=== PATIENT | female | born 1985 | race Caucasian/White ===

== ENCOUNTER 2021-07-12 17:17 | Emergency (ER) | payer MEDICAID ==
[~2021-07-12] VITALS: Ht 167.6 cm; Wt 113.9 kg
[2021-07-12 17:20] VITALS: BP 147/80
--- NOTE | 2021-07-12 17:33 | NUR ---
PT AMBULATED TO ER BED 8 WITH A STEADY GAIT.
--- NOTE | 2021-07-12 17:35 | NUR ---
36 Y/O FEMALE C/O CHEST PRESSURE AND A "LUMP IN HER THROAT" LAST NIGHT, STATING SHE FELT CHEST PAIN UPON INSPIRATION. REPORTS TODAY FEELING PALPITATIONS, DENIES CP, SOB, DIZZINESS UPON ARRIVAL. PT IS ABLE TO SPEAK IN FULL SENTENCES. LUNGS CTA. VSS. BP 144/73, P63,O2SAT 100% ROOM AIR, R 21. PT IS ALERT AND ORIENTED X4. CONNECTED TO MONITOR. BED LOCKED IN LOWEST POSITION. BED RAIL X1. PMH: DENIES NKA
--- NOTE | 2021-07-12 18:23 | NUR ---
[facility] NET AT PT BEDSIDE.
--- NOTE | 2021-07-12 18:24 | NUR ---
LAB AT PT BEDSIDE
[2021-07-12 18:39] LABS: BASOPHILS # (AUTO) 0.1 K/uL (0.00-0.22); BASOPHILS % (AUTO) 0.8 % (0.0-2.0); EOSINOPHILS # (AUTO) 0.2 K/uL (0-0.4); EOSINOPHILS % (AUTO) 2.7 % (0.0-4.0); HEMOGLOBIN 13.1 g/dL (12.0-16.0); LYMPHOCYTES # (AUTO) 2.4 K/uL (2.5-16.5); LYMPHOCYTES % (AUTO) 27.5 % (20.5-51.1); MEAN CORPUSCULAR HEMOGLOBIN 29 pg (27-31); MEAN CORPUSCULAR HGB CONC 34 g/dL (33-37); MONOCYTES # (AUTO) 0.6 K/uL (0.8-1.0); MONOCYTES % (AUTO) 6.9 % (1.7-9.3); NEUTROPHILS # (AUTO) 5.3 K/uL (1.8-7.7); NEUTROPHILS % (AUTO) 62.1 % (42.2-75.2); PLATELET COUNT (AUTO) 244 K/uL (140-450); RED BLOOD CELL COUNT(AUTO) 4.48 MIL/uL (4.20-5.40); RED CELL DISTRIBUTION WIDTH 13.5 % (11.6-13.7); WHITE BLOOD COUNT (AUTO) 8.6 K/uL (4.8-10.8)
--- NOTE | 2021-07-12 19:18 | NUR ---
report received from Eva SUTHERLAND.
--- NOTE | 2021-07-12 19:18 | NUR ---
Pt report given to MARYBETH TINEO. Transfer of care at this time.
[2021-07-12 19:22] LABS: ALBUMIN 3.7 g/dL (3.4-5.0); ANION GAP 12.5 (8-16); ASPARTATE AMINOTRANSFERASE 14 U/L (15-37); CARBON DIOXIDE 25.2 mmol/L (21-32); CHLORIDE 105 mmol/L (98-107); CREATININE 0.6 mg/dL (0.6-1.3); GFR ARICAN-AMERICAN 145 mL/min (>90); GLUCOSE 100 mg/dL (74-106); POTASSIUM 3.7 mmol/L (3.5-5.1); SODIUM SERUM 139 mmol/L (136-145); THYROID STIMULATING HORMONE 2.15 uIU/mL (0.34-3.74); TOTAL BILIRUBIN 0.5 mg/dL (0.0-1.0); UREA NITROGEN, BLOOD 12 mg/dL (7-18)
[2021-07-12] MEDS ORDERED: DICYCLOMINE HCL LIQUID 20 MG, ALUMINUM HYD/MAG/SIMETHICONE 30 ML, LIDOCAINE VISCOUS 2% ... PO ONE ×3 (19:30)
[2021-07-12] MEDS ORDERED: ALUM355S59 PO (19:40)
[2021-07-12] MEDS ORDERED: ALUMINUM HYD/MAG/SIMETHICONE 30 ML UDC ONE (19:49)
[2021-07-12] MEDS ORDERED: DICYCLOMINE HCL LIQUID 10 MG/5 ML UDC ONE (19:50)
--- NOTE | 2021-07-12 19:50 | NUR ---
PATIENT VSS, SITTING IN BED. NO C/O PALPITATIONS OR PAIN/DISCOMFORT AT THIS TIME. SIDE RAIL UP FOR SAFETY, BED LOW AND LOCKED. ALL NEEDS MET.
[2021-07-12 20:11] VITALS: BP 133/57
--- NOTE | 2021-07-12 20:11 | NUR ---
Patient discharged with v/s stable. Written and verbal after care instructions given on Dysphagia, palpitations and explained. Patient alert, oriented and verbalized understanding of instructions. Ambulatory with steady gait. All questions addressed prior to discharge. ID band removed. Patient advised to follow up with PMD. Rx of Mag Hydrox/ Al Hydrox/ Simeth given.
== END 2021-07-12 20:11 | disposition home or self-care (01) ==
LOC: MED 17:17
DX: R13.10 Dysphagia, unspecified (principal); R00.2 Palpitations; Z79.899 Other long term (current) drug therapy
CPT/HCPCS: 36415; 71045; 80053; 84443; 84484; 85025; 93005; 99285; Q0092

== ENCOUNTER 2023-04-28 01:16 | Emergency (ER) | payer MEDICAID, OTHER ==
[~2023-04-28] VITALS: Ht 165.1 cm; Wt 106.1 kg
[~2023-04-28 01:16] MED LIST: ALUM355S59 PO
[2023-04-28 01:51] VITALS: BP 146/85; PULSE 78; RESP 16; TEMP 97.1; O2SAT 97
[2023-04-28 02:32] LABS: BASOPHILS # (AUTO) 0.1 K/uL (0.00-0.22); BASOPHILS % (AUTO) 0.9 % (0.0-2.0); EOSINOPHILS # (AUTO) 0.1 K/uL (0-0.4); EOSINOPHILS % (AUTO) 2.1 % (0.0-4.0); HEMATOCRIT 38.6 % (36-48); HEMOGLOBIN 13.2 g/dL (12.0-16.0); LYMPHOCYTES # (AUTO) 1.7 K/uL (2.5-16.5); LYMPHOCYTES % (AUTO) 25.3 % (20.5-51.1); MEAN CORPUSCULAR HEMOGLOBIN 30 pg (27-31); MEAN CORPUSCULAR HGB CONC 34 g/dL (33-37); MEAN CORPUSCULAR VOLUME 88.1 fL (80-94); MONOCYTES # (AUTO) 0.5 K/uL (0.8-1.0); MONOCYTES % (AUTO) 7.5 % (1.7-9.3); NEUTROPHILS # (AUTO) 4.3 K/uL (1.8-7.7); NEUTROPHILS % (AUTO) 64.2 % (42.2-75.2); PLATELET COUNT (AUTO) 252 K/uL (140-450); RED BLOOD CELL COUNT(AUTO) 4.38 MIL/uL (4.20-5.40); RED CELL DISTRIBUTION WIDTH 13.5 % (11.6-13.7); WHITE BLOOD COUNT (AUTO) 6.6 K/uL (4.8-10.8)
[2023-04-28 02:48] LABS: INR 0.93 (0.8-1.2); PARTIAL THROMBOPLASTIN TIME 23.5 secs (22-35.6); PROTHROMBIN TIME 9.8 secs (10.8-13.4)
[2023-04-28 02:49] LABS: ALBUMIN 3.1 g/dL (3.4-5.0); ANION GAP 13.7 (8-16); CALCIUM 8.6 mg/dL (8.5-10.1); CARBON DIOXIDE 25.3 mmol/L (21-32); CREATININE 0.7 mg/dL (0.6-1.3); TOTAL BILIRUBIN 0.5 mg/dL (0.0-1.0); TOTAL PROTEIN, SERUM 7.8 g/dL (6.4-8.2)
[2023-04-28] MEDS: MORPHINE SULFATE 4 MG/ML SYR IVP ONE (03:41)
[2023-04-28] MEDS: ONDANSETRON 4 MG/2 ML VIAL IVP ONE (03:41)
[2023-04-28 05:02] LABS: APPEARANCE,URINE CLEAR (CLEAR); BILIRUBIN,URINE NEGATIVE (NEGATIVE); BLOOD, URINE TRACE-I (NEGATIVE); COLOR,URINE YELLOW (YELLOW); LEUKOCYTE ESTERASE ,URINE NEGATIVE (NEGATIVE); NITRITE, URINE NEGATIVE (NEGATIVE); PROTEIN,URINE NEGATIVE (NEGATIVE); UGLUCOSE 2+ (NEGATIVE); UROBILINOGEN,URINE 0.2 EU/dL (0.2 - 1)
[2023-04-28 05:19] LABS: BACTERIA,URINE FEW /HPF (None Seen); RBC,URINE 0-5 /HPF (0-5); SQUAMOUS EPITHELIAL CELL,UR 4-10 (MOD) /LPF (0-3 (FEW)); WBC,URINE 0-5 /HPF (0-5)
[2023-04-28] MEDS ORDERED: ONDA-188 SL (05:59)
[2023-04-28] MEDS ORDERED: FAMO40TA12 PO (06:00)
[2023-04-28 07:22] VITALS: O2SAT 98
[2023-04-28 07:24] VITALS: BP 128/76; PULSE 76; RESP 18; TEMP 98; O2SAT 98
[2023-04-28] MEDS ORDERED: HYDR-5191 PO (08:22)
== END 2023-04-28 08:42 | disposition home or self-care (01) ==
LOC: MED 01:16
DX: K29.70 Gastritis, unspecified, without bleeding (principal); J45.909 Unspecified asthma, uncomplicated; E11.9 Type 2 diabetes mellitus without complications; Z79.899 Other long term (current) drug therapy
CPT/HCPCS: 36415; 76705; 80053; 81001; 81025; 83690; 85025; 85610; 85730; 96374; 96375; 99285; J2270; J2405; Q0092